=== PATIENT | female | born 1960 | race Caucasian/White ===

== ENCOUNTER → 2017-03-06 | Outpatient (CLI) | payer OTHER, MEDICARE | LOC: BMCIMAGING 16:06 | PROVIDERS: ATTEND Family Medicine | DX: S22.41XA Multiple fractures of ribs, right side, initial encounter for closed fracture (principal) | CPT/HCPCS: 71101-PO ==

== ENCOUNTER → 2017-05-25 | Outpatient (CLI) | payer OTHER, MEDICARE | LOC: BHFA 14:00 | PROVIDERS: ATTEND Internal Medicine Cardiovascular Disease | DX: R06.00 Dyspnea, unspecified (principal) ==

== ENCOUNTER 2018-07-18 15:02 | Inpatient (IN) | payer OTHER, MEDICARE ==
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
[2018-07-18] MEDS ORDERED: IBUPROFEN 600 MG TAB PO ONE (15:45)
[2018-07-18] MEDS ORDERED: HYDROmorphONE/DILAUDID 2 MG/ML INJ IVP ONE (16:40)
[2018-07-18 17:21] LABS: PLATELET COUNT 266 10^3/uL (150-400)
[2018-07-18] MEDS ORDERED: ACETAMINOPHEN 325 MG TAB PO PRN (19:00)
[2018-07-18] MEDS ORDERED: ONDANSETRON DISINTEGRATING 4 MG TAB PO PRN (19:00)
[2018-07-18] MEDS ORDERED: ONDANSETRON 4 MG/2 ML VIAL IVP PRN (19:00)
[2018-07-18] MEDS ORDERED: fentaNYL 50 MCG PATCH TD SCH (20:15)
[2018-07-18] MEDS ORDERED: LORazepam 1 MG TAB PO PRN (20:15)
[2018-07-18] MEDS: GABAPENTIN 300 MG CAP PO SCH (22:22)
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
[2018-07-19] MEDS: LEVOTHYROXINE 100 MCG TAB PO SCH ×2 (06:09→09:23)
[2018-07-19] MEDS ORDERED: NS 1,000 ML IV SCH (08:00)
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
[2018-07-19] MEDS ORDERED: LR 1,000 ML IV ONE ×2 (08:02→18:25)
[2018-07-19] MEDS: LEVOMILNACIPRAN HCL 80 MG PO SCH (09:29)
[2018-07-19] MEDS: CALCIUM CARB W/VIT D 500 MG TAB PO SCH (09:29)
--- NOTE | 2018-07-19 12:16 | PDMN ---
Medical Necessity Medical necessity: Pt meets IP criteria per MD order and MCG MG-MD ( musculoskeletal disease); est los >2MN, eval and tx of r hip fx r/t fall requiring surgical intervention, pain management, IVF, and therapies; Comorbidities Chronic pain, osteoporosis, thyroid CA; per H&P and order 2017
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
[2018-07-19] MEDS ORDERED: fentaNYL 250 MCG/5 ML INJ ONE (19:30)
[2018-07-19] MEDS ORDERED: PROPOFOL/EMULSION 500 MG/50 ML BOTTLE IV ONE (19:30)
[2018-07-19] MEDS ORDERED: MIDAZOLAM 2 MG/2 ML VIAL IVP ONE (19:34)
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
[2018-07-19] MEDS ORDERED: POLYMYXIN B SULFATE 500,000 UNIT/10 ML SYR IRR ONE (19:45)
[2018-07-19] MEDS ORDERED: BACITRACIN 50,000 UNITS/10 ML SYR IRR ONE (19:45)
[2018-07-19] MEDS ORDERED: ROPI/epINEPH/KETOROLAC/morphINE IU ONE (20:00)
[2018-07-19] MEDS ORDERED: BUPIVACAINE/DEXTROSE 7.5MG/ML 2 ML SPINAL AMP SP ONE (20:00)
[2018-07-19] MEDS ORDERED: morphINE PF 5 MG/10 ML INJ ONE (20:01)
[2018-07-19] MEDS ORDERED: TRANEXAMIC ACID 3,000 MG in NS (SYRINGE) 50 ML IRR ONE (20:06)
[2018-07-19] MEDS ORDERED: VANCOMYCIN PHARMACY TO DOSE MISC ONE (20:06)
[2018-07-19] MEDS ORDERED: ACETAMINOPHEN 500 MG TAB PO ONE (20:06)
[2018-07-19] MEDS ORDERED: ROPIVACAINE 0.2% 80 MG, EPINEPHrine 0.2 MG, KETOROLAC TROMETHAMINE 30 MG, morphINE 10 M... IU ONE (20:06)
[2018-07-19] MEDS ORDERED: PREGABALIN 150 MG CAP PO ONE (20:06)
[2018-07-19] MEDS ORDERED: VANCOMYCIN 750 MG in D5W 150 ML IV ONE (20:30)
[2018-07-19] MEDS ORDERED: PROMETHAZINE HCL 25 MG/ML INJ IVP PRN (20:59)
[2018-07-19] MEDS ORDERED: LR 500 ML IV PRN (20:59)
[2018-07-19] MEDS ORDERED: ALBUTEROL 3 ML DEYVIAL IH PRN (20:59)
[2018-07-19] MEDS ORDERED: fentaNYL 100 MCG/2 ML INJ IVP PRN (20:59)
[2018-07-19] MEDS ORDERED: DEXAMETHASONE 4 MG/ML VIAL IVP PRN (20:59)
[2018-07-19] MEDS ORDERED: NALOXONE HCL 0.4 MG/ML INJ IVP PRN (20:59)
[2018-07-19] MEDS: BUPIVACAINE/EPI 0.5% 30 ML SDV ONE ×2 (21:13→22:24)
[2018-07-19] MEDS ORDERED: CYCLOBENZAPRINE 10 MG TAB PO PRN (22:08)
[2018-07-19] MEDS ORDERED: diphenhydrAMINE 25 MG CAP PO PRN (22:08)
[2018-07-19] MEDS ORDERED: POLYETHYLENE GLYCOL 3350 17 GM PKT PO PRN (22:08)
[2018-07-19] MEDS ORDERED: TEMAZEPAM 15 MG CAP PO PRN (22:08)
[2018-07-19] MEDS ORDERED: BISACODYL 10 MG SUPP PR PRN (22:08)
[2018-07-19] MEDS ORDERED: MAGNESIUM HYDROXIDE 30 ML UDCUP PO PRN (22:08)
[2018-07-19] MEDS ORDERED: LACTULOSE 20 GM/30 ML UDCUP PO PRN (22:08)
[2018-07-19] MEDS ORDERED: DIPHENOXYLATE/ATROPINE LOMOTIL 1 TAB PO PRN (22:08)
[2018-07-19] MEDS ORDERED: TAPENTADOL HCL 50 MG TAB PO PRN (22:08)
[2018-07-19] MEDS ORDERED: METOCLOPRAMIDE 10 MG/2 ML VIAL IVP PRN (22:08)
--- NOTE | 2018-07-19 22:08 | POSTOPPROG ---
Post Op Note Date of Operation: 07/19/18 Surgeon: Thea Moore Lot Associate: coltrain Anesthesia: Epidural Pre-op Diagnosis: r fnf Procedure: r sah with fluoro Inf/Abcess present in the surg proc area at time of surgery?: No Depth: Deep Incisional (Fascial) EBL: 100-500
[2018-07-20] MEDS: CALCIUM CARB W/VIT D 500 MG TAB PO SCH ×3 (00:24→20:14)
[2018-07-20] MEDS: FAMOTIDINE 20 MG TAB PO SCH ×3 (00:25→20:15)
[2018-07-20] MEDS: GABAPENTIN 300 MG CAP PO SCH ×3 (00:26→20:14)
[2018-07-20] MEDS: KETOROLAC 15 MG/1 ML SDV IVP SCH ×4 (00:42→17:31)
[2018-07-20] MEDS: traMADol 50 MG TAB PO SCH ×4 (00:43→17:30)
[2018-07-20] MEDS: ACETAMINOPHEN 325 MG TAB PO SCH ×4 (00:43→17:30)
[2018-07-20] MEDS: LR 1,000 ML IV SCH ×2 (00:44→09:06)
[2018-07-20] MEDS ORDERED: NS 1,000 ML IV ONE (02:09)
[2018-07-20 03:26] LABS: PLATELET COUNT 172 10^3/uL (150-400)
[2018-07-20] MEDS: LEVOTHYROXINE 100 MCG TAB PO SCH (06:38)
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
[2018-07-20] MEDS: SENNOSIDES/DOCUSATE SODIUM TAB PO SCH ×2 (08:18→20:14)
[2018-07-20] MEDS: RIVAROXABAN 10 MG TAB PO SCH (08:18)
[2018-07-20] MEDS ORDERED: GABAPENTIN 300 MG CAP PO ONE (11:07)
[2018-07-20] MEDS: LEVOMILNACIPRAN HCL 80 MG PO SCH (11:46)
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
--- NOTE | 2018-07-20 14:16 | ASMTCMCOM ---
CM Note CM Note Notes: PT/OT cleared pt to return home. Anticipate d/c home with no CM needs but will continue to follow for any change in needs. Date Signed: 07/20/2018 02:16 PM Electronically Signed By:KEKE Pitts
--- NOTE | 2018-07-20 16:05 | SOAPPROG ---
SOAP Progress Note Assessment/Plan: Assessment: Plan: Subjective: states she's doing well dressing C&D with foot NVI plan for DC tomrrow Objective: Vital Signs Temp Pulse Resp BP Pulse Ox 36.6 C 89 6 L 94/51 L 93 07/20/18 07:50 07/20/18 07:50 07/20/18 07:50 07/20/18 10:10 07/20/18 07:50 Laboratory Results 07/20/18 09:15 07/20/18 03:00 07/19/18 07/20/18 07/21/18 05:59 05:59 05:59 Intake Total 1981 Output Total 2100 Balance -119 ICD10 Worksheet Patient Problems: Problems Problem Status Onset Fracture of femoral neck, right, closed Acute C. difficile diarrhea Acute 08/21/16
[2018-07-21] MEDS: ACETAMINOPHEN 325 MG TAB PO SCH ×3 (00:18→12:27)
[2018-07-21] MEDS: traMADol 50 MG TAB PO SCH ×3 (00:19→12:27)
[2018-07-21] MEDS: LEVOTHYROXINE 100 MCG TAB PO SCH (05:53)
[2018-07-21 07:31] VITALS: BP 94/61
[2018-07-21] MEDS: RIVAROXABAN 10 MG TAB PO SCH (07:46)
[2018-07-21] MEDS: CALCIUM CARB W/VIT D 500 MG TAB PO SCH (07:47)
[2018-07-21] MEDS: oxyCODONE IR 5 MG TAB PO PRN ×2 (07:47→12:27)
[2018-07-21] MEDS: GABAPENTIN 300 MG CAP PO SCH (07:48)
[2018-07-21] MEDS: SENNOSIDES/DOCUSATE SODIUM TAB PO SCH (07:48)
[2018-07-21] MEDS: FAMOTIDINE 20 MG TAB PO SCH (07:49)
--- NOTE | 2018-07-21 11:18 | ASMTDCNOTE ---
Case Management Discharge Discharge Order Complete? Answers: Yes Patient to Obtain Answers: via Family Medications Transportation Arranged Answers: Family/Friends Transport will Pick (Date 07/21/2018 12:00 PM & Time) Faxed Final Orders Answers: Yes Notes: [facility] Family Notified Answers: Yes Notes: to transport Discharge Comments Notes: Patient has been discharged home with and [facility] for a home "Safety Eval". She is interested in a walker with a seat-given loan closet list, and a script for out-pt PT for after HC. Date Signed: 07/21/2018 11:17 AM Electronically Signed By:Ivanna Casper LCSW
[2018-07-21] MEDS: LEVOMILNACIPRAN HCL 80 MG PO SCH (11:28)
--- NOTE | 2018-07-21 11:51 | PDIAF ---
- Diagnosis Diagnosis: hip fx Code Status: Full Code - Medication Management Discharge Medications: Medications to Continue on Transfer Gabapentin [Neurontin 300 MG (*)] 300 mg PO BID@0900,1500 07/18/18 [Last Taken 07/18/18] Gabapentin [Neurontin 300 MG (*)] 600 mg PO HS 07/18/18 [Last Taken 07/17/18] LORazepam [Ativan (*)] 1 mg PO Q4H PRN 07/18/18 [Last Taken Unknown] Levomilnacipran HCl [Fetzima] 80 mg PO DAILY 07/18/18 [Last Taken 07/18/18] Levothyroxine [Synthroid 100 mcg (*)] 100 mcg PO DAILY06 07/18/18 [Last Taken ] fentaNYL [Duragesic 50 MCG Patch (*)] 50 mcg TD Q72H 07/18/18 [Last Taken ] traZODone [traZODone 150MG (*)] 150 mg PO HS 07/18/18 [Last Taken 07/17/18] Acetaminophen [Tylenol 325mg (*)] 650 mg PO Q6HRS tab 07/21/18 [Last Taken Unknown] Calcium Carb W/Vit D [Calcium Carb W/Vit D 500/200 (*)] 500 mg PO BID tab 07/21 [Last Taken Unknown] Polyethylene Glycol 3350 [Miralax 17 gm (*)] 17 gm PO DAILY PRN pkt 07/21/18 [ Last Taken Unknown] Rivaroxaban [Xarelto 10mg (*)] 10 mg PO DAILY #14 tab 07/21/18 [Last Taken Unknown] oxyCODONE IR [Oxycodone Ir (*)] 5 - 10 mg PO Q3HRS PRN #15 tab 07/21/18 [Last Taken Unknown] traMADol [Ultram 50 mg (*)] 50 mg PO Q6HRS #15 tab 07/21/18 [Last Taken Unknown] Discharge Medications: Refer to the Discharge Home Medication list for PRN reason. PICC Care - Routine: N/A - Orders Services needed: Physical Therapy Isolation Type: None Diet Recommendation: no restrictions on diet - Follow Up Care Current Providers and Referrals: Lynne Marroquin MD [Primary Care Provider] - As per Instructions
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
== END 2018-07-21 12:51 | disposition home health service (06) | DRG 470 ==
LOC: F3N 17:55
PROVIDERS: ADMIT Internal Medicine; ATTEND Internal Medicine
PROC: 0SR904Z Replacement of Right Hip Joint with Ceramic on Polyethylene Synthetic Substitute, Open Approach (ICD-10-PCS; principal; 2018-07-18)
DX: S72.001A Fracture of unspecified part of neck of right femur, initial encounter for closed fracture (principal); V18.0XXA Pedal cycle driver injured in noncollision transport accident in nontraffic accident, initial encounter; D62 Acute posthemorrhagic anemia; M81.0 Age-related osteoporosis without current pathological fracture; G89.29 Other chronic pain; F11.20 Opioid dependence, uncomplicated; R63.6 Underweight; Z68.1 Body mass index [BMI] 19.9 or less, adult; Z85.850 Personal history of malignant neoplasm of thyroid
CPT/HCPCS: 96374; 97110-GP; 97116-GP; 97161-GP; 97165-GO; C1713; G8978-GP-CI; G8979-GP-CI; G8980-GP-CI; G8987-GO-CI; G8988-GO-CI; G8989-GO-CI; J0171; J1170; J1885; J2250; J2270; J2274; J2704; J2795; J3010; J3370